=== PATIENT | female | born 1975 | race Caucasian/White ===

== ENCOUNTER → 2025-08-27 | Outpatient (CLI) | payer SELFPAY ==
[2025-08-29 12:08] LABS: Lyme Scn Total Ab w/Rflx Negative (Negative)
== END | disposition home or self-care (01) ==
PROVIDERS: PCP Nurse Practitioner Family; Referring Provider Nurse Practitioner Family; Visit Provider Nurse Practitioner Family
DX: G56.00 Carpal tunnel syndrome, unspecified upper limb (principal); M79.609 Pain in unspecified limb; R20.2 Paresthesia of skin; M79.642 Pain in left hand
CPT/HCPCS: 36415; 86618

== ENCOUNTER → 2025-09-18 | Outpatient (CLI) | payer OTHER, SELFPAY ==
--- NOTE | 2025-09-18 12:47 | NEURO_ITS ---
NCS and/or EMG Patient Report Ordering Doctor: Heather Vickers DATE OF SERVICE: 09/18/25 Angela presents with complaints of numbness and tingling in the left hand. Electrodiagnostic findings: Left median motor nerve demonstrates prolonged latency with normal amplitude and conduction velocity. Left ulnar motor respo nse is within normal limits. Normal left median and left ulnar F?waves. Absent left median sensory latency at the wrist. Needle EMG testing was performed left upper limb. All muscles tested showed no evidence of denervation with normal motor unit action potentials. Electrodiagnostic assessment: This is an abnormal study in the left upper limb. 1. Electrodiagnostic findings suggestive of left-sided median mononeuropathy. This consistent with a mild to moderate left carpal tunnel syndrome. 2. No electrodiagnostic evidence is noted for cervical radiculopathy. Multi Select Codes Neurology Neurology Interp Codes: 85368-44 Musc test done w/n test comp (interp) and 63885-24 Nrv cndj tst 5-6 studies (interp)
== END | disposition home or self-care (01) ==
PROVIDERS: PCP Nurse Practitioner Family; Referring Provider Nurse Practitioner Family; Visit Provider Nurse Practitioner Family
DX: M79.609 Pain in unspecified limb (principal); R20.2 Paresthesia of skin; G56.02 Carpal tunnel syndrome, left upper limb
CPT/HCPCS: 95886; 95909